=== PATIENT | female | born 1955 | race Caucasian/White ===

== ENCOUNTER 2023-07-22 08:54 | Outpatient (RCR) | payer MEDICARE, SELFPAY | END 2023-07-22 23:59 | disposition home or self-care (01) | LOC: RPT 08:54 | PROVIDERS: ATTENDING PHYSICIAN Urology; FAMILY PHYSICIAN Family Medicine | DX: R30.0 Dysuria (principal); R15.9 Full incontinence of feces; M62.89 Other specified disorders of muscle; R35.0 Frequency of micturition; K59.00 Constipation, unspecified; Z73.6 Limitation of activities due to disability | CPT/HCPCS: 97110; 97162; 97535 ==

== ENCOUNTER → 2023-07-24 08:31 | Outpatient (REF) | payer MEDICARE, SELFPAY | LOC: HWWDC 08:31 | PROVIDERS: ATTENDING PHYSICIAN Obstetrics & Gynecology; FAMILY PHYSICIAN Family Medicine | DX: Z12.31 Encounter for screening mammogram for malignant neoplasm of breast (principal) | CPT/HCPCS: 77063; 77067 ==

== ENCOUNTER → 2023-08-03 06:33 | Outpatient (REF) | payer MEDICARE, SELFPAY | LOC: MRI 06:33 | PROVIDERS: ATTENDING PHYSICIAN Orthopaedic Surgery; FAMILY PHYSICIAN Family Medicine | DX: M25.552 Pain in left hip (principal) | CPT/HCPCS: 72148 ==

== ENCOUNTER 2023-08-24 13:14 | Outpatient (RCR) | payer MEDICARE, SELFPAY | END 2023-08-24 23:59 | disposition home or self-care (01) | LOC: RPT 13:14 | PROVIDERS: ATTENDING PHYSICIAN Urology; FAMILY PHYSICIAN Family Medicine | DX: R30.0 Dysuria (principal); R15.9 Full incontinence of feces; M62.89 Other specified disorders of muscle; R35.0 Frequency of micturition; K59.00 Constipation, unspecified; Z73.6 Limitation of activities due to disability | CPT/HCPCS: 97110; 97112; 97535 ==

== ENCOUNTER → 2023-09-08 12:22 | Outpatient (REF) | payer MEDICARE, SELFPAY ==
[2023-09-08 16:19] LABS: % Basophils 1.4 % (0-2); % Eosinophils 3.4 % (0-6); % Immature Granulocytes 0.3 % (0-0.5); % Lymphocytes 26.3 % (20.5-51.1); % Monocytes 11.9 % (1.7-9.3); % Neutrophils 56.7 % (42.2-75.2); Absolute Basophils 0.1 10^3/uL (0-0.2); Absolute Eosinophils 0.1 10^3/uL (0-0.7); Absolute Lymphocytes 0.9 10^3/uL (1.2-3.4); Absolute Monocytes 0.4 10^3/uL (0.1-0.6); Hematocrit 32.7 % (37.0-47.0); Hemoglobin 11.2 g/dL (12.0-16.0); Mean Corp Hgb Conc. 34.3 g/dL (33.0-37.0); Mean Corpuscular Hgb 29.6 pg (27.0-31.0); Mean Corpuscular Volume 86.3 fL (81.0-99.0); Mean Platelet Volume 11.2 fL (7.4-10.4); Nucleated Red Blood Cells % 0 %; Platelet Count 207 10^3/uL (130-400); Red Blood Cell Count 3.79 10^6/uL (4.20-5.40); Red Cell Dist. Width 12.3 % (11.5-14.5); White Blood Cell Count 3.5 10^3/uL (4.8-10.8)
== END ==
LOC: HWLAB 12:22
PROVIDERS: ATTENDING PHYSICIAN Family Medicine
DX: D72.810 Lymphocytopenia (principal)
CPT/HCPCS: 36415; 85025

== ENCOUNTER 2023-09-22 15:16 | Outpatient (RCR) | payer MEDICARE, SELFPAY | END 2023-09-22 23:59 | disposition home or self-care (01) | LOC: RPT 15:16 | PROVIDERS: ATTENDING PHYSICIAN Urology; FAMILY PHYSICIAN Family Medicine | DX: R30.0 Dysuria (principal); R15.9 Full incontinence of feces; M62.89 Other specified disorders of muscle; R35.0 Frequency of micturition; K59.00 Constipation, unspecified; Z73.6 Limitation of activities due to disability | CPT/HCPCS: 97110; 97112; 97535 ==

== ENCOUNTER → 2023-09-30 11:17 | Outpatient (REF) | payer MEDICARE, SELFPAY ==
[2023-09-30 14:32] LABS: Iron 77 ug/dl (37-170)
[2023-09-30 14:42] LABS: Percent Saturation 22 % (20-50); Total Iron Binding Capacity 337 ug/dl (265-497)
[2023-09-30 15:55] LABS: Ferritin 30.9 ng/ml (11.1-264.0)
[2023-09-30 16:27] LABS: Folate > 20.0 ng/ml (2.76-20)
[2023-09-30 17:25] LABS: Vitamin B12 > 1000 pg/ml (239-931)
[2023-10-04 20:56] LABS: Albumin 4.74 g/dL (3.75-5.01); Alpha 1 Globulin 0.26 g/dL (0.19-0.46); SPEP IFE Reflex Not Done; Total Protein-Electrophoresis 6.8 g/dL (6.3-8.2)
== END ==
LOC: REG 11:17
PROVIDERS: ATTENDING PHYSICIAN Family Medicine
DX: D64.9 Anemia, unspecified (principal); D72.819 Decreased white blood cell count, unspecified; D51.9 Vitamin B12 deficiency anemia, unspecified
CPT/HCPCS: 36415; 82607; 82728; 82746; 83540; 83550; 84155; 84165

== ENCOUNTER → 2023-10-08 06:45 | Outpatient (REF) | payer MEDICARE, SELFPAY | LOC: HWRAD 06:45 | PROVIDERS: ATTENDING PHYSICIAN Family Medicine | DX: D64.9 Anemia, unspecified (principal); D72.819 Decreased white blood cell count, unspecified | CPT/HCPCS: 76700 ==

== ENCOUNTER 2023-10-28 10:55 | Outpatient (RCR) | payer MEDICARE, SELFPAY | END 2023-10-28 23:59 | disposition home or self-care (01) | LOC: RPT 10:55 | PROVIDERS: ATTENDING PHYSICIAN Urology; FAMILY PHYSICIAN Family Medicine | DX: M48.061 Spinal stenosis, lumbar region without neurogenic claudication (principal); M62.89 Other specified disorders of muscle; R35.0 Frequency of micturition; K59.00 Constipation, unspecified; M76.32 Iliotibial band syndrome, left leg | CPT/HCPCS: 97110; 97112; 97140; 97164 ==

== ENCOUNTER 2023-11-16 13:03 | Outpatient (RCR) | payer MEDICARE, SELFPAY | END 2023-11-16 23:59 | disposition home or self-care (01) | LOC: RPT 13:03 | PROVIDERS: ATTENDING PHYSICIAN Urology; FAMILY PHYSICIAN Family Medicine | DX: M48.061 Spinal stenosis, lumbar region without neurogenic claudication (principal); R35.0 Frequency of micturition; K59.00 Constipation, unspecified; M76.32 Iliotibial band syndrome, left leg; M62.89 Other specified disorders of muscle; Z73.6 Limitation of activities due to disability | CPT/HCPCS: 97110; 97112; 97140; 97535 ==

== ENCOUNTER 2023-12-10 14:54 | Outpatient (RCR) | payer MEDICARE, SELFPAY | END 2023-12-11 07:12 | disposition home or self-care (01) | LOC: RPT 14:54 | PROVIDERS: ATTENDING PHYSICIAN Urology; FAMILY PHYSICIAN Family Medicine | DX: M48.061 Spinal stenosis, lumbar region without neurogenic claudication (principal); M62.89 Other specified disorders of muscle; R35.0 Frequency of micturition; K59.00 Constipation, unspecified; M76.32 Iliotibial band syndrome, left leg; Z73.6 Limitation of activities due to disability; Z96.652 Presence of left artificial knee joint | CPT/HCPCS: 97110; 97112; 97140 ==

== ENCOUNTER → 2024-03-02 14:09 | Outpatient (REF) | payer MEDICARE, SELFPAY | LOC: PAVMRI 14:09 | PROVIDERS: ATTENDING PHYSICIAN Family Medicine | DX: I67.89 Other cerebrovascular disease (principal) | CPT/HCPCS: 70546; A9585 ==

== ENCOUNTER → 2024-03-04 07:25 | Outpatient (REF) | payer MEDICARE, SELFPAY | LOC: PAVMRI 07:25 | PROVIDERS: ATTENDING PHYSICIAN Family Medicine | DX: K82.4 Cholesterolosis of gallbladder (principal) | CPT/HCPCS: 74183; A9575 ==

== ENCOUNTER → 2024-04-10 06:33 | Outpatient (REF) | payer MEDICARE, SELFPAY | LOC: MRI 06:33 | PROVIDERS: ATTENDING PHYSICIAN Family Medicine | DX: M25.552 Pain in left hip (principal) | CPT/HCPCS: 73721 ==

== ENCOUNTER → 2024-04-11 08:23 | Outpatient (REF) | payer MEDICARE, SELFPAY | LOC: PAVMRI 08:23 | PROVIDERS: ATTENDING PHYSICIAN Family Medicine | DX: M25.562 Pain in left knee (principal); M81.0 Age-related osteoporosis without current pathological fracture | CPT/HCPCS: 73721; 77080 ==

== ENCOUNTER → 2024-04-19 13:12 | Outpatient (REF) | payer MEDICARE, SELFPAY ==
[2024-04-19 16:15] LABS: C-Reactive Protein < 5.00 mg/L (0.0-10.00)
[2024-04-19 16:17] LABS: Erythrocyte Sed Rate 10 mm/hour (0-20)
== END ==
LOC: HWLAB 13:12
PROVIDERS: ATTENDING PHYSICIAN Orthopaedic Surgery; FAMILY PHYSICIAN Family Medicine
DX: Z96.652 Presence of left artificial knee joint (principal)
CPT/HCPCS: 36415; 85652; 86140

== ENCOUNTER 2024-05-24 08:01 | Outpatient (RCR) | payer MEDICARE, SELFPAY | END 2024-05-24 23:59 | disposition home or self-care (01) | LOC: RPT 08:01 | PROVIDERS: ATTENDING PHYSICIAN Orthopaedic Surgery; FAMILY PHYSICIAN Family Medicine | DX: M48.061 Spinal stenosis, lumbar region without neurogenic claudication (principal); M76.32 Iliotibial band syndrome, left leg; Z73.6 Limitation of activities due to disability; Z96.652 Presence of left artificial knee joint | CPT/HCPCS: 97110; 97161 ==

== ENCOUNTER 2024-06-29 08:59 | Outpatient (RCR) | payer MEDICARE, SELFPAY | END 2024-06-29 23:59 | disposition home or self-care (01) | LOC: RPT 08:59 | PROVIDERS: ATTENDING PHYSICIAN Orthopaedic Surgery; FAMILY PHYSICIAN Family Medicine | DX: M48.061 Spinal stenosis, lumbar region without neurogenic claudication (principal); M76.32 Iliotibial band syndrome, left leg; Z73.6 Limitation of activities due to disability; Z96.652 Presence of left artificial knee joint | CPT/HCPCS: 97110; 97112; 97140 ==

== ENCOUNTER 2024-07-27 12:51 | Outpatient (RCR) | payer MEDICARE, SELFPAY | END 2024-07-27 23:59 | disposition home or self-care (01) | LOC: RPT 12:51 | PROVIDERS: ATTENDING PHYSICIAN Orthopaedic Surgery; FAMILY PHYSICIAN Family Medicine | DX: M48.061 Spinal stenosis, lumbar region without neurogenic claudication (principal); M76.32 Iliotibial band syndrome, left leg; Z73.6 Limitation of activities due to disability; Z96.652 Presence of left artificial knee joint; R15.9 Full incontinence of feces; M62.89 Other specified disorders of muscle; R39.15 Urgency of urination | CPT/HCPCS: 97110; 97140; 97164; 97530 ==

== ENCOUNTER 2024-08-10 06:19 | Day surgery (SDC) | payer MEDICARE, SELFPAY | END 2024-08-10 11:58 | disposition home or self-care (01) | LOC: GI 06:19 | PROVIDERS: ATTENDING PHYSICIAN Specialist | DX: Z12.11 Encounter for screening for malignant neoplasm of colon (principal); K63.89 Other specified diseases of intestine; K63.5 Polyp of colon; Z86.0101 Personal history of adenomatous and serrated colon polyps | CPT/HCPCS: 45385; 45380; 88305 ==

== ENCOUNTER → 2024-08-17 06:40 | Outpatient (REF) | payer MEDICARE, SELFPAY | LOC: HWWDC 06:40 | PROVIDERS: ATTENDING PHYSICIAN Obstetrics & Gynecology; FAMILY PHYSICIAN Family Medicine | DX: Z12.31 Encounter for screening mammogram for malignant neoplasm of breast (principal) | CPT/HCPCS: 77063; 77067 ==

== ENCOUNTER → 2024-08-22 06:14 | Outpatient (REF) | payer MEDICARE, SELFPAY ==
[2024-08-22 09:20] LABS: Hematocrit 36.1 % (37.0-47.0); Hemoglobin 12.1 g/dL (12.0-16.0); Mean Corp Hgb Conc. 33.5 g/dL (33.0-37.0); Mean Corpuscular Hgb 29.4 pg (27.0-31.0); Mean Corpuscular Volume 87.8 fL (81.0-99.0); Mean Platelet Volume 10.9 fL (7.4-10.4); Platelet Count 210 10^3/uL (130-400); Red Blood Cell Count 4.11 10^6/uL (4.20-5.40); Red Cell Dist. Width 12.6 % (11.5-14.5); White Blood Cell Count 2.7 10^3/uL (4.8-10.8)
[2024-08-22 10:06] LABS: Glycohemoglobin (HgbA1c) 5.2 % (4.0-5.6)
[2024-08-22 12:28] LABS: ALT (SGPT) 22 U/L (0-35); AST (SGOT) 31 U/L (14-36); Albumin 4.7 g/dl (3.5-5.0); Alkaline Phosphatase 50 U/L (38-126); Blood Urea Nitrogen 13 mg/dl (7-17); Calcium 9.5 mg/dl (8.4-10.2); Carbon Dioxide 29 mmol/L (22-30); Chloride 103 mmol/L (98-107); Glucose 83 mg/dl (70-99); HDL Cholesterol 86 mg/dl; Iron 123 ug/dl (37-170); LDL Cholesterol, Calculated 134 mg/dl; Sodium 138 mmol/L (135-145); Total Cholesterol 229 mg/dl (50-199); Total Protein 6.8 g/dl (6.3-8.2); Triglyceride 49 mg/dl (10-149); Very Low Density Lipoprotein 9 mg/dl (0-30); eGFR > 60.00
[2024-08-22 12:38] LABS: Percent Saturation 35 % (20-50); Total Iron Binding Capacity 345 ug/dl (265-497)
[2024-08-22 12:51] LABS: TSH Reflex To Free T4 1.24 uIU/ml (0.47-4.68)
[2024-08-22 12:55] LABS: Ferritin 27.5 ng/ml (11.1-264.0)
[2024-08-22 13:27] LABS: Folate > 20.0 ng/ml (2.76-20); Vitamin B12 > 1000 pg/ml (239-931)
== END ==
LOC: HWLAB 06:14
PROVIDERS: ATTENDING PHYSICIAN Family Medicine
DX: R03.0 Elevated blood-pressure reading, without diagnosis of hypertension (principal); D51.9 Vitamin B12 deficiency anemia, unspecified; R73.01 Impaired fasting glucose; E74.19 Other disorders of fructose metabolism; R79.89 Other specified abnormal findings of blood chemistry; E03.9 Hypothyroidism, unspecified
CPT/HCPCS: 36415; 80053; 80061; 82607; 82728; 82746; 83036; 83540; 83550; 84443; 85027

== ENCOUNTER 2024-08-26 12:55 | Outpatient (RCR) | payer MEDICARE, SELFPAY | END 2024-08-26 23:59 | disposition home or self-care (01) | LOC: RPT 12:55 | PROVIDERS: ATTENDING PHYSICIAN Orthopaedic Surgery; FAMILY PHYSICIAN Family Medicine | DX: M48.061 Spinal stenosis, lumbar region without neurogenic claudication (principal); M76.32 Iliotibial band syndrome, left leg; Z73.6 Limitation of activities due to disability; R15.9 Full incontinence of feces; M62.89 Other specified disorders of muscle; R39.15 Urgency of urination; Z96.652 Presence of left artificial knee joint | CPT/HCPCS: 97110; 97112; 97140; 97530 ==

== ENCOUNTER → 2024-08-30 06:04 | Outpatient (REF) | payer MEDICARE, SELFPAY ==
[2024-08-30 09:30] LABS: % Basophils 1.8 % (0-2); % Eosinophils 4.3 % (0-6); % Immature Granulocytes 0.4 % (0-0.5); % Monocytes 15.3 % (1.7-9.3); % Neutrophils 36.2 % (42.2-75.2); Absolute Basophils 0.1 10^3/uL (0-0.2); Absolute Eosinophils 0.1 10^3/uL (0-0.7); Absolute Lymphocytes 1.2 10^3/uL (1.2-3.4); Absolute Monocytes 0.4 10^3/uL (0.1-0.6); Hematocrit 35.3 % (37.0-47.0); Hemoglobin 11.8 g/dL (12.0-16.0); Mean Corp Hgb Conc. 33.4 g/dL (33.0-37.0); Mean Corpuscular Hgb 29.6 pg (27.0-31.0); Mean Corpuscular Volume 88.5 fL (81.0-99.0); Mean Platelet Volume 11.2 fL (7.4-10.4); Nucleated Red Blood Cells % 0 %; Platelet Count 175 10^3/uL (130-400); Red Blood Cell Count 3.99 10^6/uL (4.20-5.40); Red Cell Dist. Width 12.7 % (11.5-14.5); White Blood Cell Count 2.8 10^3/uL (4.8-10.8)
== END ==
LOC: HWLAB 06:04
PROVIDERS: ATTENDING PHYSICIAN Family Medicine
DX: R79.89 Other specified abnormal findings of blood chemistry (principal)
CPT/HCPCS: 36415; 85025

== ENCOUNTER → 2024-08-31 06:02 | Outpatient (REF) | payer MEDICARE, SELFPAY | LOC: HWLAB 06:02 | PROVIDERS: ATTENDING PHYSICIAN Family Medicine | DX: D64.9 Anemia, unspecified (principal) | CPT/HCPCS: 36415; 85045 ==

== ENCOUNTER 2024-09-16 12:56 | Outpatient (RCR) | payer MEDICARE, SELFPAY | END 2024-09-16 23:59 | disposition home or self-care (01) | LOC: RPT 12:56 | PROVIDERS: ATTENDING PHYSICIAN Orthopaedic Surgery; FAMILY PHYSICIAN Family Medicine | DX: M48.061 Spinal stenosis, lumbar region without neurogenic claudication (principal); M76.32 Iliotibial band syndrome, left leg; Z73.6 Limitation of activities due to disability; R15.9 Full incontinence of feces; M62.89 Other specified disorders of muscle; R39.15 Urgency of urination; Z96.652 Presence of left artificial knee joint | CPT/HCPCS: 97110; 97112; 97140 ==

== ENCOUNTER → 2024-09-27 06:07 | Outpatient (REF) | payer MEDICARE, SELFPAY ==
[2024-09-27 09:15] LABS: % Basophils 1.6 % (0-2); % Eosinophils 5.8 % (0-6); % Lymphocytes 42.4 % (20.5-51.1); % Monocytes 10.9 % (1.7-9.3); % Neutrophils 39.3 % (42.2-75.2); Absolute Eosinophils 0.2 10^3/uL (0-0.7); Absolute Lymphocytes 1.1 10^3/uL (1.2-3.4); Absolute Monocytes 0.3 10^3/uL (0.1-0.6); Hematocrit 35.5 % (37.0-47.0); Mean Corp Hgb Conc. 33.8 g/dL (33.0-37.0); Mean Corpuscular Hgb 29.7 pg (27.0-31.0); Mean Corpuscular Volume 87.9 fL (81.0-99.0); Mean Platelet Volume 10.9 fL (7.4-10.4); Nucleated Red Blood Cells % 0 %; Platelet Count 181 10^3/uL (130-400); Red Blood Cell Count 4.04 10^6/uL (4.20-5.40); Red Cell Dist. Width 12.8 % (11.5-14.5); White Blood Cell Count 2.6 10^3/uL (4.8-10.8)
[2024-09-27 09:16] LABS: Iron 108 ug/dl (37-170)
[2024-09-27 09:27] LABS: Percent Saturation 32 % (20-50); Total Iron Binding Capacity 332 ug/dl (265-497)
[2024-09-27 09:56] LABS: TSH 1.31 uIU/ml (0.47-4.68)
[2024-09-27 10:00] LABS: Ferritin 16.7 ng/ml (11.1-264.0)
[2024-09-27 10:32] LABS: Folate 17.5 ng/ml (2.76-20); Vitamin B12 > 1000 pg/ml (239-931)
[2024-09-27 10:55] LABS: Erythrocyte Sed Rate 8 mm/hour (0-20)
[2024-09-28 21:11] LABS: ANA, IgG Reflex to HEp-2 None Detected (None Detected)
[2024-09-29 13:23] LABS: Rheumatoid Agglutinin Less Than 10 IU (<10 IU)
== END ==
LOC: HWLAB 06:07
PROVIDERS: ATTENDING PHYSICIAN Internal Medicine Hematology & Oncology; FAMILY PHYSICIAN Family Medicine
DX: D72.819 Decreased white blood cell count, unspecified (principal); D64.9 Anemia, unspecified; D51.9 Vitamin B12 deficiency anemia, unspecified
CPT/HCPCS: 36415; 82525; 82607; 82728; 82746; 83540; 83550; 84443; 85025; 85045; 85652; 86038; 86430

== ENCOUNTER → 2024-10-11 08:30 | Outpatient (REF) | payer MEDICARE, SELFPAY ==
[2024-10-11 09:55] LABS: % Basophils 1.7 % (0-2); % Eosinophils 4.1 % (0-6); % Immature Granulocytes 0.3 % (0-0.5); % Lymphocytes 35.5 % (20.5-51.1); % Neutrophils 45.4 % (42.2-75.2); Absolute Basophils 0.1 10^3/uL (0-0.2); Absolute Eosinophils 0.1 10^3/uL (0-0.7); Absolute Monocytes 0.4 10^3/uL (0.1-0.6); Absolute Neutrophils 1.3 10^3/uL (1.4-6.5); Hematocrit 36.1 % (37.0-47.0); Mean Corp Hgb Conc. 33.2 g/dL (33.0-37.0); Mean Corpuscular Hgb 29.3 pg (27.0-31.0); Mean Platelet Volume 10.9 fL (7.4-10.4); Nucleated Red Blood Cells % 0 %; Platelet Count 183 10^3/uL (130-400); Red Cell Dist. Width 12.7 % (11.5-14.5); White Blood Cell Count 2.9 10^3/uL (4.8-10.8)
[2024-10-11 10:15] LABS: INR 1.03; PT 13.8 Sec (11.4-14.6)
[2024-10-11 10:16] LABS: APTT 30.5 Sec (23.4-35.0)
[2024-10-13 06:32] LABS: Copper, Serum 87.1 ug/dL (80.0-155.0)
== END ==
LOC: HWLAB 08:30
PROVIDERS: ATTENDING PHYSICIAN Internal Medicine Hematology & Oncology; FAMILY PHYSICIAN Family Medicine
DX: D72.819 Decreased white blood cell count, unspecified (principal); D64.9 Anemia, unspecified
CPT/HCPCS: 82525; 85025; 85610; 85730

== ENCOUNTER 2024-10-18 13:08 | Outpatient (RCR) | payer MEDICARE, SELFPAY | END 2024-10-18 23:59 | disposition home or self-care (01) | LOC: RPT 13:08 | PROVIDERS: ATTENDING PHYSICIAN Orthopaedic Surgery; FAMILY PHYSICIAN Family Medicine | DX: M48.061 Spinal stenosis, lumbar region without neurogenic claudication (principal); M76.32 Iliotibial band syndrome, left leg; Z73.6 Limitation of activities due to disability; R15.9 Full incontinence of feces; M62.89 Other specified disorders of muscle; R39.15 Urgency of urination; Z96.652 Presence of left artificial knee joint | CPT/HCPCS: 97110; 97112; 97140 ==

== ENCOUNTER → 2024-10-19 07:14 | Outpatient (REF) | payer MEDICARE, SELFPAY ==
[2024-10-19 07:43] LABS: % Basophils 1.5 % (0-2); % Eosinophils 6.3 % (0-6); % Lymphocytes 31.6 % (20.5-51.1); % Monocytes 12.1 % (1.7-9.3); % Neutrophils 48.5 % (42.2-75.2); Absolute Eosinophils 0.2 10^3/uL (0-0.7); Absolute Lymphocytes 0.9 10^3/uL (1.2-3.4); Absolute Monocytes 0.3 10^3/uL (0.1-0.6); Absolute Neutrophils 1.3 10^3/uL (1.4-6.5); Hematocrit 38.2 % (37.0-47.0); Hemoglobin 12.8 g/dL (12.0-16.0); Mean Corp Hgb Conc. 33.5 g/dL (33.0-37.0); Mean Corpuscular Hgb 29.7 pg (27.0-31.0); Mean Corpuscular Volume 88.6 fL (81.0-99.0); Mean Platelet Volume 10.2 fL (7.4-10.4); Nucleated Red Blood Cells % 0 %; Platelet Count 183 10^3/uL (130-400); Red Blood Cell Count 4.31 10^6/uL (4.20-5.40); Red Cell Dist. Width 12.7 % (11.5-14.5); White Blood Cell Count 2.7 10^3/uL (4.8-10.8)
[2024-10-19 07:53] LABS: INR 1.04; PT 14.1 Sec (11.4-14.6)
[2024-10-19 07:55] VITALS: BP 119/82; BP_SYST 54
[2024-10-19] MEDS: ATIVAN 0.5 MG IV (08:19)
[2024-10-19 09:18] VITALS: BP 125/82; BP_SYST 58
[2024-10-19 09:33] VITALS: BP 115/71
== END ==
LOC: RADI 07:14
PROVIDERS: ATTENDING PHYSICIAN Internal Medicine Hematology & Oncology; FAMILY PHYSICIAN Family Medicine; OTHER PHYSICIAN Physician Assistant
DX: D72.819 Decreased white blood cell count, unspecified (principal); D64.9 Anemia, unspecified; D68.8 Other specified coagulation defects
CPT/HCPCS: 88305; 88311; 88312; 36415; 38222; 77012; 85025; 85610; 88184; 88185; 88237; 88264; 88313; 88341; 88342

== ENCOUNTER 2024-11-01 13:00 | Outpatient (RCR) | payer MEDICARE, SELFPAY | END 2024-11-01 23:59 | disposition home or self-care (01) | LOC: RPT 13:00 | PROVIDERS: ATTENDING PHYSICIAN Orthopaedic Surgery; FAMILY PHYSICIAN Family Medicine | DX: M48.061 Spinal stenosis, lumbar region without neurogenic claudication (principal); M76.32 Iliotibial band syndrome, left leg; Z73.6 Limitation of activities due to disability; R15.9 Full incontinence of feces; M62.89 Other specified disorders of muscle; R39.15 Urgency of urination; Z96.652 Presence of left artificial knee joint | CPT/HCPCS: 97110; 97140 ==

== ENCOUNTER → 2024-11-02 06:04 | Outpatient (REF) | payer MEDICARE, SELFPAY ==
[2024-11-02 09:57] LABS: Magnesium 2.2 mg/dl (1.6-2.3)
== END ==
LOC: HWLAB 06:04
PROVIDERS: ATTENDING PHYSICIAN Specialist; FAMILY PHYSICIAN Family Medicine
DX: K59.09 Other constipation (principal)
CPT/HCPCS: 36415; 83735

== ENCOUNTER → 2025-02-20 07:53 | Outpatient (REF) | payer MEDICARE, SELFPAY | LOC: MRI 3T 07:53 | PROVIDERS: ATTENDING PHYSICIAN Specialist; FAMILY PHYSICIAN Family Medicine | DX: K76.9 Liver disease, unspecified (principal) | CPT/HCPCS: 74183; A9575 ==

== ENCOUNTER → 2025-03-28 06:54 | Outpatient (REF) | payer MEDICARE, SELFPAY | LOC: HWRAD 06:54 | PROVIDERS: ATTENDING PHYSICIAN Specialist; FAMILY PHYSICIAN Family Medicine | DX: Q26.5 Anomalous portal venous connection (principal) | CPT/HCPCS: 76700; 93975 ==